=== PATIENT | female | born 1985 | race Caucasian/White ===

== ENCOUNTER 2025-03-01 07:55 | Emergency (ER) | payer MEDICAID ==
[~2025-03-01] VITALS: Ht 162.5 cm; Wt 77.1 kg
[2025-03-01 08:47] LABS: BILIRUBIN Negative (Negative); BLOOD 2+ (Negative); CLARITY Clear (Clear); COLOR Dark Yellow (Yellow); KETONE Trace (Negative); LEUKO ESTERASE Negative (Negative); NITRITE Negative (Negative); PH 5.5 (4.5-8.0); SPECIFIC GRAVITY >= 1.030 (1.001-1.030); UROBILINOGEN 1.0 E.U./dl (0.0-1.0)
[2025-03-01 09:14] LABS: BACTERIA 3+; MUCOUS 2+; WBC 0-2 wbc/hpf (0-5)
[2025-03-01] MEDS ORDERED: MACROBID100 M1 PO (10:19)
== END 2025-03-01 12:40 | disposition home or self-care (01) ==
LOC: ED 07:55
PROVIDERS: Internal Medicine
DX: O23.43 Unspecified infection of urinary tract in pregnancy, third trimester (principal); N39.0 Urinary tract infection, site not specified; O46.93 Antepartum hemorrhage, unspecified, third trimester; Z3A.28 28 weeks gestation of pregnancy

== ENCOUNTER 2025-03-15 20:30 | Emergency (ER) | payer MEDICAID ==
[~2025-03-15] VITALS: Ht 162.5 cm; Wt 74.5 kg
[~2025-03-15 20:30] MED LIST: MACROBID100 M1 PO
[2025-03-15] MEDS ORDERED: Ondansetron Hydrochloride 4 MG TAB SL ONE (20:50)
[2025-03-15 20:59] LABS: BASO # 0.1 10*3/uL (0.0-0.1); BASO % 0.5 % (0.0-1.0); EOS # 0.1 10*3/uL (0.0-0.4); EOS % 0.3 % (1.0-4.0); MEAN CELL VOLUME 94.3 fl (81.0-99.0); MEAN CORPUSCULAR HGB 30.7 pg (27.0-31.0); MEAN PLATELET VOLUME 8.9 fl (9.6-12.3); MONO # 0.9 10*3/uL (0.1-1.0); MONO % 5.0 % (3.0-9.0); NEUT # 14.4 10*3/uL (2.3-7.9); NEUT % 83.3 % (47.0-73.0); NUCLEATED RED BLOOD CELL 0.0 % (0.0-0.0); NUCLEATED RED BLOOD CELL 0.0 10*3/uL (0.0-0.0); PLATELET COUNT AUTOMATED 260 10*3/uL (130-400); RED CELL DISTRI WIDTH 13.7 % (0-14.5)
[2025-03-15 21:00] LABS: BILIRUBIN Negative (Negative); BLOOD Negative (Negative); CLARITY Clear (Clear); COLOR Yellow (Yellow); KETONE Negative (Negative); LEUKO ESTERASE Negative (Negative); NITRITE Negative (Negative); PH 7.0 (4.5-8.0); SPECIFIC GRAVITY <= 1.005 (1.001-1.030); UROBILINOGEN 1.0 E.U./dl (0.0-1.0)
[2025-03-15 21:26] LABS: BACTERIA 2+
[2025-03-15 21:32] LABS: BUN 7 mg/dl (9-23); SGPT/ALT 10 U/L (5-49)
== END 2025-03-15 21:18 | disposition left against medical advice (07) ==
LOC: ED 20:30
PROVIDERS: Internal Medicine
DX: O26.893 Other specified pregnancy related conditions, third trimester (principal); R10.9 Unspecified abdominal pain; R11.0 Nausea; Z3A.30 30 weeks gestation of pregnancy

== ENCOUNTER 2025-06-04 01:45 | Emergency (ER) | payer OTHER ==
[~2025-06-04] VITALS: Ht 162.5 cm; Wt 68.0 kg
[2025-06-04 02:20] LABS: BASO # 0.1 10*3/uL (0.0-0.1); BASO % 0.9 % (0.0-1.0); EOS # 0.3 10*3/uL (0.0-0.4); EOS % 2.2 % (1.0-4.0); MEAN CELL VOLUME 96.5 fl (81.0-99.0); MEAN CORPUSCULAR HGB 30.0 pg (27.0-31.0); MEAN PLATELET VOLUME 9.1 fl (9.6-12.3); MONO # 0.8 10*3/uL (0.1-1.0); MONO % 5.7 % (3.0-9.0); NEUT # 9.2 10*3/uL (2.3-7.9); NEUT % 66.9 % (47.0-73.0); NUCLEATED RED BLOOD CELL 0.0 % (0.0-0.0); NUCLEATED RED BLOOD CELL 0.0 10*3/uL (0.0-0.0); PLATELET COUNT AUTOMATED 312 10*3/uL (130-400); RED CELL DISTRI WIDTH 13.1 % (0-14.5)
[2025-06-04 02:45] LABS: BUN 11 mg/dl (9-23); ETHYL ALCOHOL 4.4 mg/dl (<3)
[2025-06-04] MEDS ORDERED: NARCAN4 MG NAS (04:29)
== END 2025-06-04 05:03 | disposition home or self-care (01) ==
LOC: ED 01:45
PROVIDERS: Emergency Medicine
DX: T40.601A Poisoning by unspecified narcotics, accidental (unintentional), initial encounter (principal); Y92.89 Other specified places as the place of occurrence of the external cause